=== PATIENT | female | born 1990 | race Caucasian/White ===

== ENCOUNTER → 2016-09-21 | Outpatient (CLI) | payer MEDICAID | LOC: FIMAGING 14:17 | PROVIDERS: ATTEND Internal Medicine | DX: Z12.39 Encounter for other screening for malignant neoplasm of breast (principal); N63 Unspecified lump in breast ==

== ENCOUNTER → 2016-10-05 | Outpatient (CLI) | payer MEDICAID ==
[~2016-10-05] MED LIST: BUPIVACAINE 0.5% 10 ML SDV ONE; LIDO/EPI 1% **Not for Epidural 20 ML MDV ONE; LIDOCAINE 1% 300 MG/30 ML SDV ONE; THROMBIN (BOVINE) 5,000 UNIT VIAL TP ONE
== END ==
LOC: FIMAGING 07:05
PROVIDERS: ATTEND Internal Medicine
PROC: 0HBT3ZX Excision of Right Breast, Percutaneous Approach, Diagnostic (ICD-10-PCS; principal; 2016-10-05)
DX: D24.1 Benign neoplasm of right breast (principal); Z85.841 Personal history of malignant neoplasm of brain

== ENCOUNTER → 2017-08-29 | Outpatient (CLI) | payer MEDICAID ==
[~2017-08-29] MED LIST changes: -BUPIVACAINE 0.5% 10 ML SDV ONE; +GADOBUTROL 10 ML VIAL IVP ONE; -LIDO/EPI 1% **Not for Epidural 20 ML MDV ONE; -LIDOCAINE 1% 300 MG/30 ML SDV ONE; -THROMBIN (BOVINE) 5,000 UNIT VIAL TP ONE
== END ==
LOC: FIMAGING 12:43
PROVIDERS: ATTEND Internal Medicine Hematology & Oncology
DX: Z08 Encounter for follow-up examination after completed treatment for malignant neoplasm (principal); Z85.841 Personal history of malignant neoplasm of brain; Z98.890 Other specified postprocedural states
CPT/HCPCS: A9585

== ENCOUNTER → 2017-12-04 | Outpatient (CLI) | payer MEDICAID | LOC: FIMAGING 10:39 | PROVIDERS: ATTEND Internal Medicine Hematology & Oncology | DX: Z08 Encounter for follow-up examination after completed treatment for malignant neoplasm (principal); Z85.841 Personal history of malignant neoplasm of brain; G93.89 Other specified disorders of brain; Z98.890 Other specified postprocedural states | CPT/HCPCS: A9585 ==

== ENCOUNTER → 2018-04-24 | Outpatient (CLI) | payer OTHER, MEDICAID | LOC: FIMAGING 06:35 | PROVIDERS: ATTEND Internal Medicine Hematology & Oncology | DX: C71.9 Malignant neoplasm of brain, unspecified (principal) | CPT/HCPCS: 70553; A9585; 80183-90 ==

== ENCOUNTER → 2018-09-03 | Outpatient (CLI) | payer OTHER, MEDICAID | LOC: FIMAGING 07:38 ==